=== PATIENT | male | born 1995 | race Caucasian/White ===

== ENCOUNTER 2018-05-22 06:04 | Inpatient (IN) | payer OTHER ==
[~2018-05-22] VITALS: Ht 193 cm; Wt 131.1 kg
[2018-05-22 06:12] VITALS: BP 128/82
[2018-05-22] MEDS ORDERED: MUCINEX600 MG PO (06:17)
[2018-05-22 06:28] LABS: CALCIUM 9.4 mg/dL (8.5-10.1); HEMATOCRIT 46.7 % (42.0-52.0); HEMOGLOBIN 16.1 gm/dL (14.0-18.0); MCH 29.5 pg (26.0-34.0); MCHC 34.4 g/dL (28.0-37.0); MCV 85.6 fL (80.0-100.0); PLATELET COUNT 221 thou/uL (150-400); POTASSIUM 3.6 mmol/L (3.5-5.1); RBC 5.46 mil/uL (4.50-6.00); RDW 12.9 % (10.5-14.5); WBC 12.2 thou/uL (4.0-11.0)
[2018-05-22 06:34] LABS: ALBUMIN 3.6 g/dL (3.4-5.0); TOTAL BILIRUBIN 0.6 mg/dL (<0.1-1.0); TOTAL PROTEIN 8.3 g/dL (6.4-8.2)
[2018-05-22 07:02] VITALS: BP 133/79
[2018-05-22 07:24] LABS: ABSOLUTE NEUTROPHILS 8.8 thou/uL (1.4-8.2); ATYPICAL LYMPHS 8 %; LARGE PLATELETS OCCASIONAL
[2018-05-22 09:02] VITALS: BP 114/75
--- NOTE | 2018-05-22 11:49 | NUR ---
PATIENT ARRIVED TO UNIT FROM ED AT 0845. RECEIVED REPORT FROM NEHA IN ED. AWAKE, ALERT AND ORIENTED X 4. ADMISSION HISTORY AND ASSESSMENT COMPLETED. HAVING CHEST PAIN DUE TO COUGHING SO MUCH THE LAST FEW DAYS. LUNGS CLEAR. O2 SAT 92% ON 2L/NC. DR. MUNGUIA ROUNDED. PLAN IS TO KEEP PATIENT OVERNIGHT FOR NEBULIZER TREATMENTS AND IV ANTIBIOTIC. TOLERATING DIET. ATE ALL OF HIS BREAKFAST. RESTING AT PRESENT. FEELING WEAK. INSTRUCTED TO CALL FOR ASSISTANCE TO BATHROOM.
--- NOTE | 2018-05-22 14:23 | NUR ---
chart review, cm visited with pt and friend at bedside. his friend had brought him lunch and popsicles. pt a & o x3, pleasant and forgetful. intro to cm and dcp. pt reported " live home, no medical equip. no oxygen. independent, work, drive vehicle. insurance doesnt not start for till june because started new job and he going into service and will change again. can get medication if cheap."/pt. education on dcp, safe net packet provided, and finding primary care dr when insurance is active, denied need for rehab, " only if it is fun one, do not recommend quieting cold turkey, cigs and ethol, sober for 7 months. no anticipated needs. pt will need to see if can be wean off of oxygen prior to dc home.
[2018-05-22 15:00] VITALS: BP 121/56
[2018-05-22 19:45] VITALS: BP 129/67
[2018-05-23 03:46] VITALS: BP 121/64
[2018-05-23 05:21] LABS: BASOPHILS 0.1 % (0.0-2.0); HEMOGLOBIN 16.3 gm/dL (14.0-18.0); LYMPHOCYTES 12.2 % (24.0-44.0); MCH 29.4 pg (26.0-34.0); MCHC 34.7 g/dL (28.0-37.0); MCV 84.7 fL (80.0-100.0); MONOCYTES 4.6 % (1.0-8.0); PLATELET COUNT 260 thou/uL (150-400); POLYS 83.1 % (36.0-66.0); RBC 5.55 mil/uL (4.50-6.00); RDW 13.4 % (10.5-14.5)
[2018-05-23 05:31] LABS: CALCIUM 9.3 mg/dL (8.5-10.1); CREATININE 0.9 mg/dL (0.7-1.3); MAGNESIUM 2.5 mg/dL (1.8-2.4); POTASSIUM 4.3 mmol/L (3.5-5.1)
--- NOTE | 2018-05-23 05:44 | NUR ---
A/O, calm and pleasant; got up to walk around to improve lung function during the first hour of the shift; c/o headache, medication given and worked; vss, afebrile. lab reviewed, will keep monitoring.
[2018-05-23 08:25] VITALS: BP 130/69
[2018-05-23 13:23] VITALS: BP 129/69
--- NOTE | 2018-05-23 14:52 | NUR ---
ASSUMED CARE AT 0700. AXOX4. ON 5L TO KEEP SAT ABOVE 90%. MANAGED AND O2 TITRATED BY RT. SLIGHT TREMORS NOTED. REPORTED . PROBABLY FROM SOLU MEDROL AND BREATHING TX. NNO AT THIS TIME. NO S/S ACUTE DISTRESS NOTED OR REPORTED AT THIS TIME. WILL CONT TO MONITOR FOR ANY CHANGES IN CONDITION.
[2018-05-23 20:14] VITALS: BP 127/67
--- NOTE | 2018-05-24 02:00 | NUR ---
patient aox4 makes needs known. patient felt better this shift. tylenol given after breathing treatment d/t headache after breathing treatment. patient ambulated several time this shift, patient gets dizzy and short of air with ambulation or activity. patient calm and cooperative with meds and care. patient encouraged fluids. patient in bed watching tv at this time breathing regular and unlaboured.
[2018-05-24 05:23] VITALS: BP 126/68
[2018-05-24 10:35] VITALS: BP 125/75
--- NOTE | 2018-05-24 14:24 | NUR ---
ASSUMED CARE AT 0700. AXOX4. CT CHEST COMPLETE. RVP COLLECTED AND SENT DOWN. MOTHER AT BEDSIDE. PT EVAL BY AT BEDSIDE. REMAINS ON 5L O2. SO S/S ACUTE DISTRESS NOTED OR REPORTED AT THIS TIME. WILL CONT TO MONITOR FOR ANY CHANGES IN CONDTIION.
[2018-05-24 15:40] VITALS: BP 127/63
[2018-05-24 19:54] VITALS: BP 143/75
--- NOTE | 2018-05-24 23:35 | NUR ---
ASSUMED CARE OF PATIENT AROUND 1900. PATIENT'S MOTHER INQUIRING ABOUT VEST TREATMENTS FOR PNA, RT TX SCHEDULED THROUGH NIGHT, AND POTENTIONAL CARDIAC INVOLVEMENT. EDUCATED PT AND MOTHER ON UNDERLYING DISEASE PROCESS AND THAT VEST TREATMENTS ARE NOT INDICATED. EDUCATION GIVEN ABOUT WHILE AWAKE RT TX AND THAT TREATMENTS ARE AVAILABLE THROUGH THE NIGHT. DISCUSSED CARDIAC AND PULMONARY FUNCTION AND INVOLVMENT WITH PNA AND PNEUMONITIS. EDUCATION WELL RECEIVED AND BOTH COMMUNICATED UNDERSTANDING. PATIENT UP IN HALLS MULTIPLE TIMES WALKING WITH O2 TANK. FREQUENT CHECK IN WITH RN AND RT TO KEEP PATIENT FROM OVER EXERTING. PATIENT EAGER TO IMPROVE AND WILLING TO DO ANYTHING TO GET FEELING BETTER AND DISCHARGE FROM HOSPITAL. PROGRESSING TOWARD GOALS, WILL CONTINUE TO MONITOR.
[2018-05-25 04:05] VITALS: BP 124/69
[2018-05-25 08:03] VITALS: BP 145/70
[2018-05-25 16:34] VITALS: BP 139/64
[2018-05-25 19:00] VITALS: BP 105/49
--- NOTE | 2018-05-25 19:08 | NUR ---
ASSUMED PT CARE AT 0700H. PT A&O X4. PT HAS NO S/S OF DISTRESS. PT TOLERATES MEALS AND MEDS. PT AMBULATES HALLWAY ON STEADY GAIT ON NC 6.0L OXYGEN. PT STATES DRY NARES. CONSULTED PHYSICIAN. NEW ORDERS RECEIVED FOR NaCl NASAL. PT STATES RELIEF. PT HAS R AC C/D/I DRSG. PT HAS MUM AT BEDSIDE. PT CURRENTLY SLEEPING AND CONT BEING MONITORED FOR SAFETY.
[2018-05-25 21:46] LABS: HCO3 25.6 mmol/L (22.0-26.0); PCO2 40.8 mmHg (35.0-45.0); PO2 84.4 mmHg (80.0-100.0); pH 7.416 (7.360-7.450); sO2 96.5 % (92.0-98.0)
[2018-05-26] VITALS (7 sets, daily range): BP systolic 96–161; BP diastolic 51–82
--- NOTE | 2018-05-26 05:10 | NUR ---
ASSUMED CARE OF PT. ASLEEP AT THE TIME OF SHIFT CHANGE AND APPEARS TO BE RESTING COMFORTABLY. PT C/O PACHECO TOWARDS THE BEGINNING OF THE SHIFT AND PO TYLENOL WAS GIVEN AND EFFECTIVE. VSS, AFEBRILE. REMAINS ON 6L O2. RT IN TO SEE PT AND STATED CONCERN OF PT CONTINUING TO REQUIRE HIGH FLOW O2. CONTACTED KHLOE Masters APRN WHO GAVE AN ORDER FOR AN ABG. CRITICAL LACTATE ON ABG OF 3.64. NO NEW ORDERS AT THIS TIME. PT SLEPT OFF AND ON OVERNIGHT WITH NO CONCERNS. TOTALING APPROXIMATELY 5 HOURS OF SLEEP. MOTHER AT BEDSIDE.
[2018-05-26 10:09] LABS: HEMOGLOBIN 16.4 gm/dL (14.0-18.0); MCH 29.2 pg (26.0-34.0); MCHC 33.4 g/dL (28.0-37.0); MCV 87.6 fL (80.0-100.0); RBC 5.59 mil/uL (4.50-6.00); RDW 13.6 % (10.5-14.5); WBC 14.5 thou/uL (4.0-11.0)
[2018-05-26 10:12] LABS: CALCIUM 9.3 mg/dL (8.5-10.1); MAGNESIUM 2.1 mg/dL (1.8-2.4); POTASSIUM 3.5 mmol/L (3.5-5.1)
--- NOTE | 2018-05-26 10:16 | NUR ---
CARE TEAM INDICATED THAT PT IS SLOWLEY PROGRESSING TOWARD GOAL OF DISCHARGING HOME. CM FOLLOWING. PT IS STILL ON 6L O2.
--- NOTE | 2018-05-26 17:12 | HC ---
[facility] [place] [address] CONSULTATION Name: DANICA CORNEJO Room #: 449-I ADM IN M.R.#: [id number] Admission: 05/22/18 Attend Phys: Trevor Mckeon MD Discharge: Date of : 95 Report #: [id number] THIS REPORT FOR: //name// CC: JOHANNY physician/PCP Trevor Mckeon REFERRING PHYSICIAN: Dr. Mckeon. REASON FOR CONSULTATION: Pneumonia and hypoxia. HISTORY OF PRESENT ILLNESS: The patient is a 23-year-old white male who admitted on 05/22/2018 with pneumonia. The patient is now hypoxic requiring 6 liters of O2. A pulmonary consultation was requested. The patient states he has been healthy for most of his life. For the past few months, he has lost about 50 pounds. He is trying to get to the . 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 He admits that he is working a lot of hours lately. A few days prior to presentation, he felt rundown with myalgias, congestion. 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 He also developed fever few days prior to presentation. With worsening symptoms and now cough productive of purulent sputum, the patient presented to the Emergency Room. In the past, he has had trouble with occasional upper respiratory tract infection. He was born and raised in [place]. He moved to [facility] 2-3 years ago. He noticed that he had developed allergies once he moved to the [facility]. It is said to be year round. Otherwise, he denies any childhood history of asthma, sinusitis. PAST MEDICAL HISTORY: Otherwise unremarkable. Had a right arm fracture as a child. ALLERGIES: None to medications. HOME MEDICATIONS: None. He is currently on Levaquin, prednisone. FAMILY HISTORY: Noncontributory. He is oldest of 6 children. His parents are in good health. SOCIAL HISTORY: He is single, trying to get to the [employer]. He has smoked about a pack a day for 2-3 years. He drank alcohol in the past, but quit 6 months ago. [facility] [address] [place] [address] CONSULTATION Name: DANICA CORNEJO Room #: 449-I [facility] IN .R.#: [id number] Admission: 05/22/18 Attend Phys: Trevor Mckeon MD Discharge: Date of : 95 Report #: [id number] REVIEW OF SYSTEMS: As mentioned above. He has lost about 50 pounds intentionally trying to get to the [employer]. Otherwise, 10-point system review negative. He also denies any risk factors to HIV infection, etc. PHYSICAL EXAMINATION: GENERAL: He is awake, alert, in no apparent distress. VITAL SIGNS: Temperature is 97 degrees Fahrenheit, pulse is 98, respiratory rate is 20, blood pressure 140/70 mmHg and saturation is 93% on 6 liters of O2. HEENT: Normocephalic, atraumatic. NECK: Supple, without any lymphadenopathy or thyromegaly. CHEST: Breath sounds are clear without obvious rales or wheezes. CARDIOVASCULAR: Normal S1, S2. No murmur or gallop. There is no JVD. There is no carotid bruit. Pulses are 2+/4+ bilaterally. ABDOMEN: Soft, nontender, no organomegaly or masses felt. GENITOURINARY: Deferred. RECTAL: Deferred. EXTREMITIES: There is no edema, cyanosis or clubbing. LABORATORY DATA: CT chest angiogram shows patchy bilateral infiltrates involving the right middle lobe, right lower lobe, left lower lobe air bronchogram is noted. No pleural effusion is seen. Right hemidiaphragm is mildly elevated. Influenza A and B swab is negative. Lactic acid is normal. Procalcitonin level is normal. Electrolytes are normal. WBC is 12,200, hemoglobin 16.1, platelets are normal, no evidence of bandemia. IMPRESSION: 1. Patchy bilateral infiltrates in this 23-year-old white male who presents with fever along with productive cough of purulent sputum. He has intentionally lost weight, about 50 pounds in the last few months. He smokes. He has allergies. 2. Suspect bilateral pneumonia, community acquired. Pulmonary embolus has been ruled out with a negative CT chest angiogram. No obvious presence of immunodeficiency risk factors other than he works many hours as a manager [employer]. 3. Acute hypoxic respiratory failure due to above. No evidence of pulmonary embolus. 4. Allergic rhinitis. RECOMMENDATIONS: Agree with broad-spectrum antibiotics. He is currently on Levaquin. Note that there has been several black box warning from the FDA. Would consider switching antibiotics to other alternatives such as Rocephin and doxycycline. We will complete approximately 7-10 day course of antibiotics. Wean O2 for saturation 90%. I think we can taper off the prednisone as no clear history of reactive airway disease or asthma in the past. He has smoked in the [facility] [address] [place] [address] CONSULTATION Name: DANICA CORNEJO Room #: 449-I ADM IN M.R.#: [id number] Admission: 05/22/18 Attend Phys: Trevor Mckeon MD Discharge: Date of : 95 Report #: [id number] past, but no history of COPD. Should his hypoxia worsen or persist with worsening infiltrates, a diagnostic bronchoscopy will be helpful. Thank you for the consultation. <ELECTRONICALLY SIGNED> By: Donald Siddiqi MD 05/26/18 1712 [id number] 04 Donald Siddiqi MD /nt
--- NOTE | 2018-05-27 01:58 | NUR ---
PATIENT AOX4 MAKES NEEDS KNOWN. PATIENT TOLD THIS NURSE HE FEELS BETTER.PATIENT ON 6 L OF OXYGEN. NO SHORTNESS OF AIR OR DISTRESS NOTED WITH ACTIVITY. PATIENT DENIED PAIN OR DISCOMOFRT.MOTHER AT BEDSIDE. PATIENT IN BED ASLEEP AT THIS TIME BREATHING REGULAR AND UNLABOURED.
[2018-05-27 03:06] LABS: IgA 287 mg/dL (90-386); IgG 1050 mg/dL (700-1600); IgM 138 mg/dL (20-172)
[2018-05-27 04:09] VITALS: BP 121/74
[2018-05-27 07:11] LABS: HIV ANTIBODY Non Reactive (Non Reactive)
[2018-05-27 07:50] VITALS: BP 131/69
[2018-05-27 09:00] VITALS: BP 131/61
--- NOTE | 2018-05-27 11:47 | NUR ---
cm revisited with pt rt insurance and when possible be effective via phone call. 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 this is not great timing with enlistment time."/[place]. will cont following as needed for dc needs, pt cont to progress slowly, still on hf oxygen.
--- NOTE | 2018-05-27 11:54 | 2DMMODE ---
[facility] [address] [place] [address] 2 D/M-MODE ECHOCARDIOGRAM Name: DANICA CORNEJO Room #: 449-I ADM IN .R.#: [id number] Admission: 05/22/18 Attend Phys: Trevor Mckeon, Discharge: Date of : 95 Date of Service: 05/27/18 1154 Report #: [id number] THIS REPORT FOR: //name// APPROVED REPORT Study performed: 05/27/2018 10:54:28 EXAM: Comprehensive 2D, Doppler, and color-flow Echocardiogram Patient Location: Echo lab Room #: [facility] Status: routine BSA: 2.59 HR: 84 bpm BP: 131/61 mmHg Rhythm: NSR Other Information Study Quality: Adequate Indications Hypoxia, pneumonia, rule out right to left shunt. Echo Enhancing Agent Indication: Rule out Shunt Agent(s) / Amount(s) Used: Agitated Saline 6 cc 2D Dimensions RVDd: 38.58 mm IVSd: 11.15 (7-11mm) LVOT Diam: 25.47 (18-24mm) LVDd: 58.43 mm PWd: 11.30 (7-11mm) Ascending Ao: 29.39 (22-36mm) LVDs: 40.90 (25-40mm) Aortic Root: 32.69 mm Volumes Left Atrial Volume (Systole) Single Plane 4CH: 45.22 mL Single Plane 2CH: 45.09 mL LA ESV Index: 19.00 mL/m2 Aortic Valve AoV Peak Aleks.: 1.34 m/s AO Peak Gr.: 7.15 mmHg LVOT Max P.44 mmHg LVOT Max V: 0.93 m/s IGLESIA Vmax: 3.53 cm2 [facility] [address] [address] 2 D/M-MODE ECHOCARDIOGRAM Name: DANICA CORNEJO Room #: 449-I ADM IN ..#: [id number] Admission: 05/22/18 Attend Phys: Trevor Mckeon, Discharge: Date of : 95 Date of Service: 05/27/18 1154 Report #: [id number] Pulmonary Valve PV Peak Aleks.: 0.98 m/s PV Peak Gr.: 3.85 mmHg Tricuspid Valve TR Peak Aleks.: 2.33 m/s RAP Estimate: 5.00 mmHg TR Peak Gr.: 21.69 mmHg PA Pressure: 27.00 mmHg Left Ventricle The left ventricle is normal size. There is normal LV segmental wall motion. There is normal left ventricular wall thickness. Left ventricular systolic function is normal. LVEF is 50-55%. Right Ventricle The right ventricle is normal size. The right ventricular systolic function is normal. Atria The left atrium size is normal. No shunting noted by contrast bubble injection. The right atrium size is normal. Aortic Valve The aortic valve is normal in structure. No aortic regurgitation is present. There is no aortic valvular stenosis. Mitral Valve The mitral valve is normal in structure. There is no mitral valve regurgitation noted. No evidence of mitral valve stenosis. Tricuspid Valve The tricuspid valve is normal in structure. Mild tricuspid regurgitation. Estimated PAP is 27mmHg. Pulmonic Valve The pulmonary valve is normal in structure. Trace pulmonic regurgitation. Great Vessels The aortic root is normal in size. The ascending aorta is normal in size. IVC is normal in size and collapses >50% with inspiration. Pericardium There is no pericardial effusion. <Conclusion> [facility] [address] [place] [address] 2 D/M-MODE ECHOCARDIOGRAM Name: DANICA CORNEJO Room #: 449-I ADM IN M.R.#: [id number] Admission: 05/22/18 Attend Phys: Trevor Mckeon, Discharge: Date of : 95 Date of Service: 05/27/18 1154 Report #: [id number] The left ventricle is normal size. LVEF is 50-55%. No shunting noted by contrast bubble injection. The aortic valve is normal in structure. The mitral valve is normal in structure. The tricuspid valve is normal in structure. The pulmonary valve is normal in structure. There is no pericardial effusion. <ELECTRONICALLY SIGNED> By: Thai Michaels MD 05/27/18 1154 1154 1154 Thai Michaels MD /INF
[2018-05-27 14:41] VITALS: BP 118/57
--- NOTE | 2018-05-27 15:07 | HC ---
[facility] [place] [address] [place] [address] CONSULTATION Name: DANICA CORNEJO Room #: 449-I ADM IN M.R.#: [id number] Admission: 05/22/18 Attend Phys: Trevor Mckeon MD Discharge: Date of : 95 Report #: [id number] THIS REPORT FOR: //name// CC: JOHANNY physician/PCP Trevor Mckeno DATE OF SERVICE: 05/26/2018 TYPE OF REPORT: Infectious disease consultation. REASON FOR CONSULTATION: Evaluate pneumonia and leukocytosis. HISTORY OF PRESENT ILLNESS: The patient was a 23-year-old otherwise healthy gentleman who was admitted on 05/22/2018 with a 3-day history of cough with purulent sputum production and occasional hemoptysis associated with fever or chills, anterior chest discomfort and progressive shortness of breath. He was working long hours. He presented to the Emergency Room on 05/22/2018 when he became short of breath that he could not make it to work. He has had no travel. He lives with two other roommates. They also developed a respiratory tract infection and was treated with antibiotics. None of them developed pneumonia. He has never had previous pneumonia. Has occasional sinus infection. Mother states he was a healthy child. He has never been hospitalized. He is a past smoker who has lost about 50 pounds in the last 5 months. Last week, he was able to exercise vigorously running 3 miles a day and able to work out with weights. No family history of chronic lung disease or cystic fibrosis. REVIEW OF SYSTEMS: Denies any headache, nausea, vomiting, diarrhea, dysuria, frequency, palpitations, rash OR arthritis. A 10-point review negative other than what is described above. PAST MEDICAL HISTORY: Fractured right arm and environmental allergies. ALLERGIES: None known. MEDICATIONS: Currently on vancomycin and Levaquin. He has been on Solu-Medrol since admission, now on prednisone. FAMILY HISTORY: As above. SOCIAL HISTORY: Single, past smoker. No significant alcohol intake. Denies any HIV risk factors. PHYSICAL EXAMINATION: VITAL SIGNS: Afebrile and hemodynamically stable. On 5 liters of oxygen per nasal cannula. GENERAL: The patient was sitting up in bed, alert, conversant, no distress. [facility] [address] [place] [address] CONSULTATION Name: DANICA CORNEJO Room #: 449-I ADM IN .R.#: [id number] Admission: 05/22/18 Attend Phys: Trevor Mckeon MD Discharge: Date of : 95 Report #: [id number] Moderately obese. SKIN: Without rash. No palpable adenopathy. HEENT: Eyes without conjunctivitis. Mouth without mucositis. NECK: Supple, with no thyromegaly or mass. LUNGS: Consolidation in the left base posteriorly. No rub. HEART: Regular, without murmur, gallop or rub. ABDOMEN: Soft and nontender. No hepatosplenomegaly or mass. EXTREMITIES: Without clubbing, cyanosis or edema. NEUROLOGICAL: Cranial nerves intact. Strength in upper and lower extremities was normal. Sensation in upper and lower extremities are normal. LABORATORY STUDIES: Sodium 137, potassium 3.5, bicarbonate 26 and creatinine 1. Liver function test normal. Hemoglobin 16.4; white count 14.5 and platelet count 294,000. Differential unremarkable. Viral respiratory panel, urine antigen for Legionella, strep pneumo pending. IgE pending. Procalcitonin normal. Sputum culture, normal elizabeth. Blood cultures negative. RADIOLOGICAL DATA: Chest x-ray, left lower lobe and right mid to lower lobe infiltrate. CT scan of the chest showed right lower lobe, right middle lobe consolidation with dense consolidation in the left lower lobe. There was no evidence of pleural effusion. IMPRESSION: A 23-year old with community-acquired pneumonia. The patient was sick for several days prior to his presentation. I am suspecting streptococcal infection would be most likely. No evidence of methicillin-susceptible Staphylococcus aureus growth so far. Further studies are pending. It is possible he had influenza at the onset, but his influenza antigen testing was negative. RECOMMENDATIONS: We will continue IV antibiotic therapy. We would taper his prednisone for this may be affecting his white count. Continue to monitor his CBC and chest x-ray. The patient remains on fairly high dose oxygen supplementation. We will see how he does over the next 24-48 hours. I am encouraged that the patient is starting to feel better within the last day. He is at risk for further complications such as empyema or cavitation. He will be monitored for this. I have discussed treatment plan with the patient and his mother at the bedside. We will also check immune system. <ELECTRONICALLY SIGNED> By: Vance Garcia MD 05/27/18 [phone] Vance Garcia MD /nt
--- NOTE | 2018-05-27 15:59 | NUR ---
PT PROGRESSING SLOWLEY TOWARD GOAL OF DISCHARGE. CM TO FOLLOW INDICATED WITH DC PLANNING.
--- NOTE | 2018-05-27 20:10 | NUR ---
Pt stable during the shift, makes needs known and uses the call light appropriatly. Still on 6L if O2 via NC, MRSA and sputum sample collected and sent to lab. MRSA is negative. Alert and oriented x 4 mother is at bedside. No complaints or issues identified.
[2018-05-27 20:55] VITALS: BP 130/56
[2018-05-27 21:09] LABS: ADENOVIRUS Negative (Negative); INFLUENZA A Negative (Negative); INFLUENZA B Negative (Negative); METAPNEUMOVIRUS Negative (Negative); PARAINFLUENZA 1 Negative (Negative); PARAINFLUENZA 2 Negative (Negative); PARAINFLUENZA 3 Negative (Negative); RHINOVIRUS Negative (Negative); RSV A Negative (Negative); RSV B Negative (Negative)
[2018-05-28 03:36] VITALS: BP 111/63
--- NOTE | 2018-05-28 05:19 | NUR ---
Assumed care at 1845. Pt resting in bed with mother at bedside. He has been tolerating breathing treatments well. Still on 6L NC. Denies trouble breathing. No identified needs at the moment. Will continue to monitor.
[2018-05-28 06:03] LABS: HEMOGLOBIN 15.4 gm/dL (14.0-18.0); MCH 29.4 pg (26.0-34.0); MCHC 33.4 g/dL (28.0-37.0); MCV 87.9 fL (80.0-100.0); RBC 5.23 mil/uL (4.50-6.00); RDW 13.3 % (10.5-14.5); WBC 15.7 thou/uL (4.0-11.0)
[2018-05-28 07:11] LABS: CALCIUM 8.8 mg/dL (8.5-10.1); POTASSIUM 3.9 mmol/L (3.5-5.1)
[2018-05-28 08:20] VITALS: BP 103/42
--- NOTE | 2018-05-28 14:57 | NUR ---
DISCHARGE PLANNING. PATIENT IS READY FOR DISCHARGE TODAY, POST ACUTE CARE RECOMMENDED PER ATTENDING PHYSICIAN AND DISIPLINES. REFERRAL FAXED TO [facility] PER FAMILY REQUEST. [facility] PLAC[facility] TO [facility] ADMISS[facility]. YANCY TO REVIEW REFERRAL AND CONTACT ONCE COMPLETE. WILL FACILITATE DISCHARGE AND TRANSPORTATION AT THAT TIME. UNIT CM/SW AWARE.
[2018-05-28 16:40] VITALS: BP 108/60
--- NOTE | 2018-05-28 19:10 | NUR ---
Pt A&OX4 with mother at bedside. Pt calm and cooperative, has showered and ambulates without difficulty or SOA. CALL light is within reach and voices no concerns. Will continue to monitor.
[2018-05-28 19:58] VITALS: BP 137/87
[2018-05-28 21:06] LABS: HISTOPLASMA MYCELIAL-ID Negative (Negative)
[2018-05-28 22:07] LABS: HISTOPLASMA MYCELIAL-CF Negative (Neg:<1:2)
--- NOTE | 2018-05-29 02:56 | NUR ---
PT SLEPT ON AND OFF DURING THE NIGHT NO COMPLAINTS OF PAIN PT AMBULATED HALLWAYS FOR 30 MIN NO ISSUES OVERNIGHT.
[2018-05-29 05:39] LABS: HEMATOCRIT 46.4 % (42.0-52.0); HEMOGLOBIN 15.4 gm/dL (14.0-18.0); MCH 29.2 pg (26.0-34.0); MCHC 33.2 g/dL (28.0-37.0); MCV 87.9 fL (80.0-100.0); RBC 5.28 mil/uL (4.50-6.00); RDW 12.9 % (10.5-14.5); WBC 15.8 thou/uL (4.0-11.0)
[2018-05-29 05:49] LABS: CALCIUM 8.6 mg/dL (8.5-10.1); CREATININE 0.9 mg/dL (0.7-1.3)
--- NOTE | 2018-05-29 08:18 | NUR ---
PT UP WITH RT, WALKING IN HALLWAY. PT WILL DC HOME NO NEEDS WHEN MEDICALLY STABLE. PER BEDSIDE NURSE REPORT O2 WITH 3-4 WITH ACT AND 2 L AT REST, CONT TO WEAN OFF OXYGEN PRIOR TO DC HOME.
[2018-05-29 08:59] VITALS: BP 137/82
--- NOTE | 2018-05-29 12:13 | NUR ---
CARE TEAM INDICATED THAT PT MAY BE MEDICALLY STABLE TO DISCHARGE HOME THIS DAY WITH NO NEEDS. NO OTHER CM INTERVENTION INDICATED AT THIS TIME. CASE CLOSED.
[2018-05-29] MEDS ORDERED: LEVAQUIN 750 M750 MG PO (15:04)
[2018-05-29] MEDS ORDERED: PREDNISONE 10 M10 MG PO (15:05)
[2018-05-29] MEDS ORDERED: VENTOLIN HFA 1818 GM INH (15:05)
[2018-05-29] MEDS ORDERED: BENZONATATE100 MG PO (15:07)
[2018-05-29 15:16] VITALS: BP 137/82
--- NOTE | 2018-05-29 15:44 | NUR ---
ASSUMED CARE AT 0700. AXOX4. MOTHER AT BEDSIDE. ON RA WITH RT CLEARANCE. CLEARED BY PULMO AND ID. RECEIVED AN D/C ORDER WITH PERSCRIPTIONS AND F/U WITH PCP AND PULMO IV REMOVED AND D/C INSTRUCTIONS AND PRESCRIPTIONS WERE GIVEN TO PT AT BEDSIDE. NO S/S ACUTE DISTRESS NOTED OR REPORTED AT THE TIME OF DEPARTURE.
== END 2018-05-29 15:52 | disposition home or self-care (01) | DRG 871 ==
LOC: ER 06:04 → EROBS 06:45 → 4W 06:45 → ENTRNSPT 05-26 11:26 → EDTRNSPTSTS 05-26 11:31 → 4W 05-29 15:52
PROVIDERS: Emergency Medicine; Hospitalist; Internal Medicine Pulmonary Disease; Nurse Practitioner; Specialist; ADMIT Internal Medicine
DX: A41.9 Sepsis, unspecified organism (principal); J96.01 Acute respiratory failure with hypoxia; J12.9 Viral pneumonia, unspecified; J15.9 Unspecified bacterial pneumonia; Y95 Nosocomial condition; J30.9 Allergic rhinitis, unspecified; J45.909 Unspecified asthma, uncomplicated; E66.09 Other obesity due to excess calories; Z68.35 Body mass index [BMI] 35.0-35.9, adult; Z87.891 Personal history of nicotine dependence; Z87.81 Personal history of (healed) traumatic fracture; Z79.899 Other long term (current) drug therapy; Z91.010 Allergy to peanuts
CPT/HCPCS: 10045; 10047